=== PATIENT | male | born 1985 ===

== ENCOUNTER 2017-08-18 22:21 | Emergency (ER) | payer OTHER ==
[2017-08-18 22:35] VITALS: TEMP 99.1
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
[2017-08-19 01:05] VITALS: BP 118/74; PULSE 78; RESP 18; O2SAT 99
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
== END 2017-08-19 00:40 | disposition home or self-care (01) ==
LOC: ED 22:21
DX: S60.211A Contusion of right wrist, initial encounter (principal); V49.9XXA Car occupant (driver) (passenger) injured in unspecified traffic accident, initial encounter